=== PATIENT | female | born 1995 | race Caucasian/White ===

== ENCOUNTER 2017-11-10 13:38 | Emergency (ER) | payer OTHER ==
--- NOTE | 2017-11-10 14:25 | RAD REPORT ---
EXAM DESCRIPTION: Ellis Rainey (2 Views)11/10/2017 2:19 pm CLINICAL HISTORY: Chest pain COMPARISON: none FINDINGS: The lungs appear clear of acute infiltrate. The heart is normal size IMPRESSION: No acute abnormalities displayed
[2017-11-10 16:45] LABS: Absolute Lymphocytes (CBC) 1.9 K/uL (0.7-4.9); Absolute Monocytes 0.4 K/uL (0.1-1.3); Absolute Neutrophil 2.9 K/uL (1.8-8.0); Eosinophils % 1.2 % (0-4.4); Hematocrit 40.1 % (36.0-45.0); Lymphocytes % 36.2 % (15.3-44.8); MCH 31.3 pg (27.0-35.0); MCV 91.4 fL (80-100); MPV 9.6 fL (7.6-11.3); RBC Red Blood Cell Count 4.38 M/uL (3.86-4.86)
[2017-11-10 16:56] LABS: BUN Blood Urea Nitrogen 16 mg/dL (7-18); Bicarbonate 30 mmol/L (21-32); Glucose Level 106 mg/dL (74-106); Potassium 3.4 mmol/L (3.5-5.1); Sodium Level 142 mmol/L (136-145)
--- NOTE | 2017-11-10 17:59 | ER ---
Nurse's Notes [facility] Name: Vikki Rivers Age: 22 yrs Sex: Female : 1995 Arrival Date: 11/10/2017 Time: 13:42 Bed 8 Private MD: None, None Diagnosis: Chest pain, unspecified Presentation: 11/10 13:45 Presenting complaint: Patient states: midsternal/epigastric pain with some radiation to sv the left side. c/o burning sensation in throat. Pt stated that she was not exerting herself at the time. Transition of care: patient was not received from another setting of care. Onset of symptoms was November 10, 2017. Care prior to arrival: None. 13:45 Method Of Arrival: Ambulatory sv 13:45 Acuity: GRICELDA 3 sv 16:42 Risk Assessment: Do you want to hurt yourself or someone else? Patient reports no la1 desire to harm self or others. Initial Sepsis Screen: Does the patient meet any 2 criteria? No. Patient's initial sepsis screen is negative. Does the patient have a suspected source of infection? No. Patient's initial sepsis screen is negative. 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 - Social history:: Smoking status: Patient/guardian denies using tobacco. - Ebola Screening: : No symptoms or risks identified at this time. Screenin:41 Abuse screen: Denies threats or abuse. Nutritional screening: No deficits noted. la1 Nutritional screening: No deficits noted. Tuberculosis screening: No symptoms or risk factors identified. Fall Risk None identified. Assessment: 16:41 General: Appears in no apparent distress. Behavior is calm, cooperative. Pain: Denies la1 pain. Neuro: Level of Consciousness is awake, alert, obeys commands, Oriented to person, place, time, situation. Cardiovascular: Heart tones S1 S2 present Capillary refill < 3 seconds Patient's skin is warm and dry. Respiratory: Airway is patent Respiratory effort is even, unlabored, Respiratory pattern is regular, symmetrical, Breath sounds are clear bilaterally. GI: No signs and/or symptoms were reported involving the gastrointestinal system. : No signs and/or symptoms were reported regarding the genitourinary system. 17:53 Reassessment: Patient appears in no apparent distress at this time. No changes from la1 previously documented assessment. Patient and/or family updated on plan of care and expected duration. Pain level reassessed. Vital Signs: 13:47 BP 108 / 75; Pulse 74; Resp 18; Temp 98.6; Pulse Ox 99% ; Weight 54.43 kg; Height 5 ft. sv 6 in. (167.64 cm); Pain 1/10; 18:18 BP 118 / 75; Pulse 74; Resp 16; Pulse Ox 100% on R/A; la1 13:47 Body Mass Index 19.37 (54.43 kg, 167.64 cm) sv ED Course: 13:42 Patient arrived in ED. sb2 13:42 None, None is Private Physician. sb2 13:46 Triage completed. sv 13:47 Arm band placed on right wrist. sv 13:48 EKG completed in triage. Results shown to MD. sv 13:59 EKG done, by ED staff. em1 14:16 Chest Pa And Lat (2 Views) XRAY In Process Unspecified. EDMS 16:11 Gonzalez Vazquez NP is PHCP. pm1 16:11 Gaston Turner MD is Attending Physician. pm1 16:28 Nathan Banda, RN is Primary Nurse. la1 16:41 No provider procedures requiring assistance completed. Inserted saline lock: 22 gauge la1 in left antecubital area, using aseptic technique. Blood collected. Patient maintains SpO2 saturation greater than 95% on room air. 16:42 Call light in reach. Pulse ox on. NIBP on. la1 18:17 IV discontinued, intact, bleeding controlled, No redness/swelling at site. Pressure la1 dressing applied. Administered Medications: No medications were administered Outcome: 17:58 Discharge ordered by MD. pm1 18:18 Discharged to home ambulatory. la1 18:18 Condition: stable 18:18 Discharge instructions given to patient, Instructed on discharge instructions, follow up and referral plans. Demonstrated understanding of instructions, follow-up care. 18:18 Patient left the ED. la1 Signatures: Dispatcher [employer] Hallie Romero RN RN sv Martinez, Eric em1 Nathan Banda, RN RN la1 Gonzalez Vazquez, PADDER PADDER pm1 Zaira Cassidy2
--- NOTE | 2017-11-10 17:59 | EDPHYS ---
Physician Documentation [facility] Name: Vikki Rivers Age: 22 yrs Sex: Female : 1995 Arrival Date: 11/10/2017 Time: 13:42 Bed 8 Private MD: None, None ED Physician Gaston Turner HPI: 11/10 17:05 This 22 yrs old Female presents to ER via Ambulatory with complaints of Chest pm1 Pain. 17:05 The patient or guardian reports chest pain that is located primarily in the substernal pm1 area. The pain does not radiate. Associated signs and symptoms: Pertinent negatives: abdominal pain, cough, dizziness, headache, nausea, palpitations, vomiting. 17:05 The chest pain is described as burning. Duration: The patient or guardian reports pm1 multiple episodes, that have now resolved. Modifying factors: The symptoms are alleviated by nothing. the symptoms are aggravated by nothing. Severity of pain: in the emergency department the pain has resolved. The patient has not experienced similar symptoms in the past. The patient has not recently seen a physician, and does not have an established primary care provider. Patient with on and off chest pain for multiple months. Patient with chest pain today that is epigastric and midsternal with burning. Patient told me that the pain does not radiation. No radiation to left shoulder. No shortness of breath. Patient does not take any medications. No control. Patient onset of pain 1130. 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 - Social history:: Smoking status: Patient/guardian denies using tobacco. - Ebola Screening: : No symptoms or risks identified at this time. ROS: 17:11 Constitutional: Negative for fever, chills, and weight loss, Eyes: Negative for injury, pm1 pain, redness, and discharge, ENT: Negative for injury, pain, and discharge, Neck: Negative for injury, pain, and swelling. 17:11 Respiratory: Negative for shortness of breath, cough, wheezing, and pleuritic chest pain, Abdomen/GI: Negative for abdominal pain, nausea, vomiting, diarrhea, and constipation, Back: Negative for injury and pain, : Negative for injury, bleeding, discharge, and swelling, MS/Extremity: Negative for injury and deformity, Skin: Negative for injury, rash, and discoloration, Neuro: Negative for headache, weakness, numbness, tingling, and seizure. 17:11 Cardiovascular: Positive for chest pain, Negative for edema, orthopnea, palpitations, paroxysmal nocturnal dyspnea. Exam: 17:11 Constitutional: This is a well developed, well nourished patient who is awake, alert, pm1 and in no acute distress. Head/Face: Normocephalic, atraumatic. Eyes: Pupils equal round and reactive to light, extra-ocular motions intact. Lids and lashes normal. Conjunctiva and sclera are non-icteric and not injected. Cornea within normal limits. Periorbital areas with no swelling, redness, or edema. ENT: Nares patent. No nasal discharge, no septal abnormalities noted. Tympanic membranes are normal and external auditory canals are clear. Oropharynx with no redness, swelling, or masses, exudates, or evidence of obstruction, uvula midline. Mucous membranes moist. Neck: Trachea midline, no thyromegaly or masses palpated, and no cervical lymphadenopathy. Supple, full range of motion without nuchal rigidity, or vertebral point tenderness. No Meningismus. Chest/axilla: Normal chest wall appearance and motion. Nontender with no deformity. No lesions are appreciated. Cardiovascular: Regular rate and rhythm with a normal S1 and S2. No gallops, murmurs, or rubs. Normal PMI, no JVD. No pulse deficits. Respiratory: Lungs have equal breath sounds bilaterally, clear to auscultation and percussion. No rales, rhonchi or wheezes noted. No increased work of breathing, no retractions or nasal flaring. Abdomen/GI: Soft, non-tender, with normal bowel sounds. No distension or tympany. No guarding or rebound. No evidence of tenderness throughout. Back: No spinal tenderness. No costovertebral tenderness. Full range of motion. Skin: Warm, dry with normal turgor. Normal color with no rashes, no lesions, and no evidence of cellulitis. MS/ Extremity: Pulses equal, no cyanosis. Neurovascular intact. Full, normal range of motion. 17:11 NSR with sinus arrythmia 17:11 Neuro: Orientation: is normal, Motor: is normal, Sensation: is normal, no obvious gross deficits. Vital Signs: 13:47 BP 108 / 75; Pulse 74; Resp 18; Temp 98.6; Pulse Ox 99% ; Weight 54.43 kg; Height 5 ft. sv 6 in. (167.64 cm); Pain 1/10; 18:18 BP 118 / 75; Pulse 74; Resp 16; Pulse Ox 100% on R/A; la1 13:47 Body Mass Index 19.37 (54.43 kg, 167.64 cm) sv MDM: 16:11 Patient medically screened. pm1 17:57 Data reviewed: vital signs. Data interpreted: Pulse oximetry: on room air is 99 %. pm1 Interpretation: normal. Counseling: I had a detailed discussion with the patient and/or guardian regarding: the historical points, exam findings, and any diagnostic results supporting the discharge/admit diagnosis, radiology results, the need for outpatient follow up, to return to the emergency department if symptoms worsen or persist or if there are any questions or concerns that arise at home. 11/10 16:20 Order name: Basic Metabolic Panel; Complete Time: 17:17 pm1 11/10 16:20 Order name: CBC with Diff; Complete Time: 17:17 pm1 11/10 13:48 Order name: EKG; Complete Time: 13:49 sv 11/10 13:48 Order name: Chest Pa And Lat (2 Views) XRAY; Complete Time: 16:12 sv 11/10 16:20 Order name: Troponin (emerg Dept Use Only); Complete Time: 17:17 pm1 11/10 13:48 Order name: EKG - Nurse/Tech; Complete Time: 13:58 sv 11/10 16:20 Order name: Cardiac monitoring; Complete Time: 17:07 pm1 11/10 16:20 Order name: IV Saline Lock; Complete Time: 17:07 pm1 11/10 16:20 Order name: Labs collected and sent; Complete Time: 17:07 pm1 11/10 16:20 Order name: O2 Per Protocol; Complete Time: 17:07 pm1 11/10 16:20 Order name: O2 Sat Monitoring; Complete Time: 17: pm1 Administered Medications: No medications were administered Disposition: 11/10/17 17:58 Discharged to Home. Impression: Chest pain, unspecified. - Condition is Stable. - Discharge Instructions: Nonspecific Chest Pain. - Medication Reconciliation Form, Thank You Letter form. - Follow up: Emergency Department; When: As needed; Reason: Worsening of condition. Follow up: Private Physician; When: 2 - 3 days; Reason: Recheck today's complaints, Continuance of care, Re-evaluation by your physician. - Problem is new. - Symptoms have improved. Addendum: 11/12/2017 11:18 Co-signature as Attending Physician, Gaston Turner MD I agree with the assessment and w a plan of care. Signatures: Dispatcher [employer] EDWI Hallie Hudson RN RN Nathan Banda RN RN la1 Gonzalez Vazquez, COOKER SODA COOKER SODA pm1 Johnny, MD CADENCE [place] Corrections: (The following items were deleted from the chart) 11/10 16:31 16:21 Chest Single View+RAD.RAD.BRZ ordered. [facility] 17:11 17:05 The pain does not radiate. pm1 pm1 18:18 17:58 11/10/2017 17:58 Discharged to Home. Impression: Chest pain, unspecified. la1 Condition is Stable. Forms are Medication Reconciliation Form, Thank You Letter, Antibiotic Education, Prescription Opioid Use. Follow up: Emergency Department; When: As needed; Reason: Worsening of condition. Follow up: Private Physician; When: 2 - 3 days; Reason: Recheck today's complaints, Continuance of care, Re-evaluation by your physician. Problem is new. Symptoms have improved. pm1
--- NOTE | 2017-11-11 16:19 | EKG ---
Test Date: 2017-11-10 Test Time: 13:51:28 [employer] Program Director: ALYSSIA MEASUREMENT RESULTS: Intervals: Rate: 60 MA: 162 QRSD: 90 QT: 402 QTc: 402 [place]: P: 70 MA: 162 QRS: 79 T: 59 INTERPRETIVE STATEMENTS: Normal sinus rhythm with sinus arrhythmia Normal ECG No previous ECG available for comparison Electronically Signed On 11-11-17 16:18:51 CDT by Shashi Plummer
== END 2017-11-10 18:18 | disposition home or self-care (01) ==
LOC: ER 13:38
DX: R07.9 Chest pain, unspecified (principal)
CPT/HCPCS: 36415; 71046; 80048; 84484; 85025; 93005; 99284